=== PATIENT | male | born 1965 | race American Indian/Alaskan Native ===

== ENCOUNTER 2021-05-25 17:02 | Observation (INO) | payer SELFPAY, OTHER ==
[2021-05-25] MEDS ORDERED: ASPIRIN 325 MG TAB PO ONE (20:47)
--- NOTE | 2021-05-25 21:20 | XRay Report ---
CHEST 2 VIEWS INDICATION / CLINICAL INFORMATION: Chest Pain. COMPARISON: None available. FINDINGS: SUPPORT DEVICES: None. HEART / MEDIASTINUM: The heart size is normal with a left ventricular configuration. Pulmonary vascul ature is normal. There is mild aortic tortuosity without aneurysm. LUNGS / PLEURA: No significant pulmonary or pleural abnormality. No pneumothorax. ADDITIONAL FINDINGS: No significant additional findings. IMPRESSION: No acute findings. Signer Name: Dimas Musa MD Signed: 05/25/2021 9:16 PM Workstation Name: [id number]
[2021-05-25 21:43] LABS: Basophils % (Auto) 0.3 % (0.0-1.8); Eosinophils # (Auto) 0.1 K/mm3 (0.0-0.4); Eosinophils % (Auto) 1.3 % (0.0-4.3); Hematocrit 48.5 % (35.5-45.6); Hemoglobin 15.6 gm/dl (11.8-15.2); Lymphocytes # (Auto) 3.4 K/mm3 (1.2-5.4); Mean Corpuscular HGB Conc 32 % (32-34); Mean Corpuscular Volume 85 fl (84-94); Monocytes # (Auto) 0.4 K/mm3 (0.0-0.8); Monocytes % (Auto) 6.8 % (0.0-7.3); Platelet Count 248 K/mm3 (140-440); Red Cell Distribution Width 15.5 % (13.2-15.2)
[2021-05-25 22:06] LABS: Alanine Aminotransferase 21 units/L (7-56); Albumin 3.8 g/dL (3.9-5); BUN/Creatinine Ratio 12; Blood Urea Nitrogen 12 mg/dL (9-20); Calcium 8.8 mg/dL (8.4-10.2); Hemolysis Index 28
--- NOTE | 2021-05-25 23:02 | Emergency Department Report ---
HPI - General Chief Complaint: Chest Pain Time Seen by Provider: 05/25/21 22:41 - HPI HPI: MSE 3 The patient is a 56-year-old male present with chief complaint of shortness of breath and head cold. The patient states he has had a "head cold" for the past 3 days with symptoms that included cough productive of white/yellow sputum, rhinorrhea and shortness of breath. Patient states he has not been vaccinated against COVID. Patient complains of chest pain when he coughs and chest soreness. Patient states he went to an urgent care facility today and the continuous improvement intern sent him to the ED for further evaluation. They documented that a COVID test was sent with will not have results for 2 to 3 days. Patient denies known sick contacts ED Past Medical Hx - Past Medical History Previous Medical History?: Yes Hx Hypertension: Yes - Family History Family history: no significant - Social History Smoking Status: Never Smoker Substance Use Type: None (Denies illicit drug use), Alcohol (Occasional) - Medications Home Medications: Home Medications Medication Instructions Recorded Confirmed Last Taken Type Ciprofloxacin HCl [Ciprofloxacin 500 mg PO Q12H #20 tab 03/27/15 Unknown Rx TAB] HYDROcodone/APAP 5-325 [[place] 1 each PO Q6HR PRN #20 tablet 03/27/15 Unknown Rx 5/325] Ibuprofen [Motrin] 600 mg PO Q8H PRN #50 tablet 03/27/15 Unknown Rx Promethazine [Phenergan TAB] 25 mg PO Q6HR PRN #25 tab 03/27/15 Unknown Rx Tamsulosin [Flomax] 0.4 mg PO QDAY #20 cap 03/27/15 Unknown Rx lisinopriL [Zestril TAB] 40 mg PO QDAY #30 tablet 03/27/15 Unknown Rx ED Review of Systems ROS: Stated complaint: FLU LIKE SYMPTOMS Other details as noted in HPI Constitutional: no symptoms reported Eyes: denies: eye pain ENT: congestion Respiratory: cough, shortness of breath, SOB with exertion Cardiovascular: as per HPI Endocrine: no symptoms reported Gastrointestinal: denies: abdominal pain Genitourinary: denies: dysuria Musculoskeletal: myalgia Neurological: denies: headache Physical Exam - Physical Exam Vital Signs: Vital Signs 05/25/21 20:24 Temperature 98.7 F Pulse Rate 102 H Respiratory 18 Rate Blood Pressure 149/101 O2 Sat by Pulse 92 Oximetry Physical Exam: GENERAL: The patient is well-developed well-nourished male sitting in chair not appearing to be in acute distress HEENT: Normocephalic. Atraumatic. Extraocular motions are intact. Patient has moist mucous membranes. NECK: Supple. Trachea midline CHEST/LUNGS: Clear to auscultation. There is no respiratory distress noted. HEART/CARDIOVASCULAR: Regular. There is no tachycardia. There is no gallop rub or murmur. ABDOMEN: Abdomen is soft, nontender. Patient has normal bowel sounds. There is no abdominal distention. SKIN: There is no rash. There is no edema. There is no diaphoresis. NEURO: The patient is awake, alert, and oriented. The patient is cooperative. The patient has no focal neurologic deficits. The patient has normal speech. GCS 15 MUSCULOSKELETAL: There is no evidence of acute injury. ED Course Vital Signs 05/25/21 20:24 Temperature 98.7 F Pulse Rate 102 H Respiratory 18 Rate Blood Pressure 149/101 O2 Sat by Pulse 92 Oximetry ED Medical Decision Making - Lab Data Result diagrams: 05/25/21 21:09 05/25/21 21:09 Laboratory Tests 05/25/21 05/25/21 05/25/21 21:09 21:09 23:29 WBC 6.6 RBC 5.70 H Hgb 15.6 H Hct 48.5 H MCV 85 MCH 27 L MCHC 32 RDW 15.5 H Plt Count 248 Lymph % (Auto) 51.0 H [place] % (Auto) 6.8 Eos % (Auto) 1.3 Baso % (Auto) 0.3 Lymph # (Auto) 3.4 [place] # (Auto) 0.4 Eos # (Auto) 0.1 Baso # (Auto) 0.0 Seg Neutrophils % 40.6 Seg Neutrophils # 2.7 Sodium 137 Potassium 4.3 Chloride 99.0 Carbon Dioxide 24 Anion Gap 18 BUN 12 Creatinine 1.0 Estimated GFR > 60 BUN/Creatinine Ratio 12 Glucose 113 H Lactic Acid Calcium 8.8 Total Bilirubin 0.30 AST 31 ALT 21 Alkaline Phosphatase 63 Troponin T < 0.010 < 0.010 Total Protein 7.6 Albumin 3.8 L Albumin/Globulin Ratio 1.0 Lipase 18 05/25/21 23:29 WBC RBC Hgb Hct MCV MCH MCHC RDW Plt Count Lymph % (Auto) [place] % (Auto) Eos % (Auto) Baso % (Auto) Lymph # (Auto) [place] # (Auto) Eos # (Auto) Baso # (Auto) Seg Neutrophils % Seg Neutrophils # Sodium Potassium Chloride Carbon Dioxide Anion Gap BUN Creatinine Estimated GFR BUN/Creatinine Ratio Glucose Lactic Acid 1.20 Calcium Total Bilirubin AST ALT Alkaline Phosphatase Troponin T Total Protein Albumin Albumin/Globulin Ratio Lipase - EKG Data -: EKG Interpreted by Me EKG shows normal: sinus rhythm Rate: normal - EKG Data When compared to previous EKG there are: previous EKG unavailable Interpretation: other (No ischemic changes seen) - Radiology Data Radiology results: report reviewed (Chest x-ray), image reviewed (Chest x-ray) interpreted by me: Chest x-ray-no definite focal infiltrate, no pneumothorax [facility] [address] [place] [address] XRay Report Signed Patient: ROSINA MCDONOUGH MR#: [place] [id number] : 1965 Acct:[id number] Age/Sex: 56 / M ADM Date: 05/25/21 Loc: ED [facility] Dr: Ordering Physician: ABIEL HALL Date of Service: 05/25/21 Procedure(s): XR chest routine 2V Accession Number(s): [id number] cc: ABIEL HALL Fluoro Time In Minutes: CHEST 2 VIEWS INDICATION / CLINICAL INFORMATION: Chest Pain. COMPARISON: None available. FINDINGS: SUPPORT DEVICES: None. HEART / MEDIASTINUM: The heart size is normal with a left ventricular configuration. Pulmonary vasculature is normal. There is mild aortic tortuosity without aneurysm. LUNGS / PLEURA: No significant pulmonary or pleural abnormality. No pneumothorax. ADDITIONAL FINDINGS: No significant additional findings. IMPRESSION: No acute findings. Signer Name: Dimas Musa MD Signed: 05/25/2021 9:16 PM Workstation Name: [id number] Transcribed By: RT Dictated By: Dimas Musa MD Electronically Authenticated By: Dimas Musa MD Signed Date/Time: 05/25/212115 DD/ 14 TD/TT: - Differential Diagnosis COVID-pneumonia, influenza, bronchitis, Critical care attestation.: If time is entered above; I have spent that time in minutes in the direct care of this critically ill patient, excluding procedure time. ED Disposition Clinical Impression: Suspected COVID-19 virus infection, Hypoxia, Cough, Chest pain Disposition: ADMITTED INPATIENT Is pt being admited?: Yes Does the pt Need Aspirin: Yes Condition: Stable Instructions: Nonspecific Chest Pain, Adult Referrals: PRIMARY CARE,MD [Primary Care Provider] - 3-5 Days Time of Disposition: 00:39 (Hospitalist notified (Dr Brito)) Heart Score - HEART Score History: Slightly suspicious EKG: Normal Age: 45-65 Risk factors: 1-2 risk factors Troponin: < normal limit HEART Score: 2 - EKG Read Time Time EKG Completed: 21:43 EKG Read Time: 21:43
[2021-05-26] MEDS ORDERED: AZITHROMYCIN/NS 500 MG/250 ML 500 MG/250 ML BAG IV ONE
[2021-05-26] MEDS ORDERED: cefTRIAXone/NS 1 GM/50 ML 1 GM/50 ML BAG IV ONE
[2021-05-26] MEDS ORDERED: ONDANSETRON 4 MG/2 ML INJ IV PRN (01:44)
[2021-05-26] MEDS ORDERED: ACETAMINOPHEN 325 MG TAB PO PRN (01:44)
[2021-05-26] MEDS ORDERED: MORPHINE 4 MG/1 ML INJ IV PRN (01:44)
[2021-05-26] MEDS ORDERED: MAGNESIUM HYDROXIDE (MOM) ORAL LIQD UDC PO PRN (01:44)
[2021-05-26] MEDS ORDERED: MORPHINE 2 MG/1 ML INJ IV PRN (01:44)
[2021-05-26] MEDS ORDERED: SODIUM CHLORIDE 0.9% 1000 ML 1,000 ML IV SCH ×2 (01:45)
--- NOTE | 2021-05-26 01:57 | History and Physical Report ---
History of Present Illness Date of examination: 05/26/21 Date of admission: 05/26/21 00:05 Chief complaint: Shortness of breath Chest congestion History of present illness: 56-year-old male with no significant past medical history presenting to the emergency room today complaining of upper respiratory symptoms including cough, chest congestion and shortness of breath. Symptoms has been ongoing for about 3 days. Cough has been productive of some yellowish sputum. He feels some chest soreness after coughing. Patient has been having some low-grade fever. Patient denies any sick contacts and no recent travel. Denies any contact with anyone with COVID-19. He admits he has not been vaccinated against COVID-19. Patient had gone to an urgent care facility and was subsequently sent to the emergency room for further evaluation. A COVID test was said to have been done but results will not be ready until 48 to 72 hours. Upon arrival in the emergency room oxygen saturation was in the low 90s on room air. Work-up in the emergency room today, chest x-ray reveals no acute findings. Labs were unremarkable. Patient admitted with possible PUI. Past History Past Medical History: hypertension Past Surgical History: No surgical history Social history: alcohol abuse (Drinks alcohol occasionally). denies: smoking Family history: no significant family history Medications and Allergies Allergies Allergy/AdvReac Type Severity Reaction Status Date / Time No Known Allergies Allergy Unverified 11/25/13 09:57 Home Medications Medication Instructions Recorded Confirmed Last Taken Type Ciprofloxacin HCl [Ciprofloxacin 500 mg PO Q12H #20 tab 03/27/15 Unknown Rx TAB] HYDROcodone/APAP 5-325 [[place] 1 each PO Q6HR PRN #20 tablet 03/27/15 Unknown Rx 5/325] Ibuprofen [Motrin] 600 mg PO Q8H PRN #50 tablet 03/27/15 Unknown Rx Promethazine [Phenergan TAB] 25 mg PO Q6HR PRN #25 tab 03/27/15 Unknown Rx Tamsulosin [Flomax] 0.4 mg PO QDAY #20 cap 03/27/15 Unknown Rx lisinopriL [Zestril TAB] 40 mg PO QDAY #30 tablet 03/27/15 Unknown Rx Active Meds: Active Medications Acetaminophen (Acetaminophen 325 Mg Tab) 650 mg PO Q4H PRN PRN Reason: Pain MILD(1-3)/Fever >100.5/TOLLIVER Dexamethasone (Dexamethasone 20 Mg/5 Ml Vial) 10 mg IV ONCE ONE Stop: 05/26/21 01:49 Heparin Sodium (Porcine) (Heparin 5,000 Unit/1 Ml Vial) 5,000 unit SUB-Q Q8HR MYRANDA Sodium Chloride (Nacl 0.9% 1000 Ml) 1,000 mls @ 75 mls/hr IV DIRECT MYRANDA Ceftriaxone Sodium (Rocephin/Ns 2 Gm/100 Ml) 2 gm in 100 mls @ 200 mls/hr IV Q24H MYRANDA; Protocol Azithromycin (Zithromax/Ns) 500 mg in 250 mls @ 250 mls/hr IV Q24H MYRANDA; Protocol Sodium Chloride (Nacl 0.9% 1000 Ml) 1,000 mls @ 75 mls/hr IV DIRECT MYRANDA Magnesium Hydroxide (Magnesium Hydroxide (Mom) Oral Liqd Udc) 30 ml PO Q4H PRN PRN Reason: Constipation Morphine Sulfate (Morphine 2 Mg/1 Ml Inj) 2 mg IV Q4H PRN PRN Reason: Pain, Moderate (4-6) Morphine Sulfate (Morphine 4 Mg/1 Ml Inj) 4 mg IV Q4H PRN PRN Reason: Pain , Severe (7-10) Ondansetron HCl (Ondansetron 4 Mg/2 Ml Inj) 4 mg IV Q8H PRN PRN Reason: Nausea And Vomiting Sodium Chloride (Sodium Chloride 0.9% 10 Ml Flush Syringe) 10 ml IV BID MYRANDA Sodium Chloride (Sodium Chloride 0.9% 10 Ml Flush Syringe) 10 ml IV PRN PRN PRN Reason: LINE FLUSH Review of Systems Constitutional: fever, chills Ears, nose, mouth and throat: nasal congestion, no sore throat Cardiovascular: no chest pain, no palpitations Respiratory: cough, shortness of breath, no wheezing Gastrointestinal: no abdominal pain, no nausea, no vomiting, no diarrhea Genitourinary Male: no dysuria, no hematuria, no flank pain, no nocturia Musculoskeletal: no neck pain, no low back pain Integumentary: no rash, no pruritis Neurological: no headaches, no confusion Psychiatric: no anxiety, no depression Endocrine: no polyphagia, no polydipsia, no polyuria, no nocturia Exam - Constitutional Vitals: Temp Pulse Resp BP Pulse Ox 98.7 F 102 H 18 149/101 92 05/25/21 20:24 05/25/21 20:24 05/25/21 20:24 05/25/21 20:24 05/25/21 20:24 General appearance: Present: no acute distress, well-nourished, obese - EENT Eyes: Present: PERRL, EOM intact. Absent: scleral icterus ENT: hearing intact, clear oral mucosa, dentition normal - Neck Neck: Present: supple, normal ROM - Respiratory Respiratory effort: normal Respiratory: bilateral: CTA - Cardiovascular Rhythm: regular Heart Sounds: Present: S1 & S2. Absent: gallop, systolic murmur, diastolic murmur, rub, click - Extremities Extremities: no ischemia, pulses intact, pulses symmetrical, No edema, normal temperature, normal color, Full ROM Peripheral Pulses: within normal limits - Abdominal General gastrointestinal: Present: soft, non-tender, non-distended, normal bowel sounds. Absent: mass - Integumentary Integumentary: Present: clear, warm, dry, normal turgor. Absent: rash - Musculoskeletal Musculoskeletal: strength equal bilaterally - Psychiatric Psychiatric: appropriate mood/affect, intact judgment & insight, memory intact, cooperative - Neurologic Neurologic: CNII-XII intact, no focal deficits, moves all extremities HEART Score - HEART Score EKG: Normal Age: 45-65 Risk factors: 1-2 risk factors Troponin: Troponin T < 0.010 ng/mL (0.00-0.029) 05/25/21 23:29 Troponin: < normal limit Results - Labs CBC & Chem 7: 05/25/21 21:09 05/26/21 00:16 Labs: Abnormal lab results 05/25/21 05/25/21 05/26/21 Range/Units 21:09 21:09 00:16 RBC 5.70 H (3.65-5.03) M/mm3 Hgb 15.6 H (11.8-15.2) gm/dl Hct 48.5 H (35.5-45.6) % MCH 27 L (28-32) pg RDW 15.5 H (13.2-15.2) % Lymph % (Auto) 51.0 H (13.4-35.0) % D-Dimer 625.05 H (0-234) ng/mlDDU Glucose 113 H (75-100) mg/dL Albumin 3.8 L (3.9-5) g/dL Assessment and Plan - Patient Problems (1) Suspected COVID-19 virus infection Current Visit: Yes Status: Acute Plan to address problem: Will await COVID-[address] on isolation precautions. Patient placed on IV steroids. Consult placed to infectious disease for evaluation. (2) Hypoxia Current Visit: Yes Status: Acute Plan to address problem: Patient placed on oxygen and will keep O2 saturation greater or equal to 92%. (3) Hypertension Current Visit: Yes Status: Acute Plan to address problem: We will resume routine home medications and monitor vital signs closely. (4) DVT prophylaxis Current Visit: Yes Status: Acute Plan to address problem: Patient placed on subcutaneous heparin. (5) Full code status Current Visit: Yes Status: Acute Plan to address problem: Patient is full code.
[2021-05-26] MEDS ORDERED: dexAMETHasone 4 MG/ML VIAL IV ONE (02:48)
[2021-05-26 04:40] LABS: C-Reactive Protein 4.1 mg/dL (0.00-1.30)
[2021-05-26] MEDS ORDERED: HEPARIN 5,000 UNIT/1 ML VIAL SUB-Q SCH (06:00)
[2021-05-26] MEDS ORDERED: ALBUTEROL 2.5 MG/3 ML NEBU IH SCH (08:00)
[2021-05-26] MEDS ORDERED: TAMSULOSIN 0.4 MG CAP PO SCH (10:00)
[2021-05-26] MEDS ORDERED: DEXAMETHASONE 4 MG TAB PO SCH (10:00)
[2021-05-26] MEDS ORDERED: hydrALAZINE 20 MG/1 ML INJ IV PRN (10:00)
[2021-05-26] MEDS ORDERED: AZITHROMYCIN/NS 500 MG/250 ML 500 MG/250 ML BAG IV SCH (10:00)
[2021-05-26] MEDS ORDERED: LISINOPRIL 40 MG TAB PO SCH (10:00)
[2021-05-26] MEDS ORDERED: cefTRIAXone/NS 2 GM/100 ML 2 GM/100 ML BAG IV SCH (10:00)
[2021-05-26 11:14] VITALS: BP 115/64
--- NOTE | 2021-05-26 12:03 | Discharge Summary ---
Providers - Providers Date of Admission: 05/26/21 00:05 Attending physician: EAN VELÁZQUEZ MD 05/26/21 01:44 Consult to Physician [CONS] Routine Comment: Consulting Provider: OLE MAGANA Physician Instructions: Reason For Exam: PUI Primary care physician: SENIOR OFFICER Hospitalization Reason for admission: SHORTNESS OF BREATH Condition: Stable Hospital course: 56-year-old male with no significant past medical history presenting to the emergency room today complaining of upper respiratory symptoms including cough, chest congestion and shortness of breath. Symptoms has been ongoing for about 3 days. Cough has been productive of some yellowish sputum. He feels some chest soreness after coughing. Patient has been having some low-grade fever. Patient denies any sick contacts and no recent travel. Denies any contact with anyone with COVID-19. He admits he has not been vaccinated against COVID-19. Patient had gone to an urgent care facility and was subsequently sent to the emergency room for further evaluation. A COVID test was said to have been done but results will not be ready until 48 to 72 hours. Upon arrival in the emergency room oxygen saturation was in the low 90s on room air. Work-up in the emergency room today, chest x-ray reveals no acute findings. Labs were unremarkable. Patient admitted with possible PUI. I saw the patient, ordered COVID 19 AND DISCUSSED WITH NURSE THAT PATIENT NEEDS HOME O2 STUDY AND CTA CHEST AND IF BOTH ARE NEGATIVE PATIENT CAN BE DISCHARGED. I found out none was done and that patient "WALKED OUT" I was not notified of this until I called AM NOT SURE IF THAT MEANS HE ELOPED OR LEFT AMA. It appears patient left with the steroids I ordered. (1)COVID-19 virus infection Current Visit: Yes Status: Acute Plan to address problem: Will await COVID-[address] on isolation precautions. Patient placed on IV steroids. Consult placed to infectious disease for evaluation. (2) Hypoxia Current Visit: Yes Status: Acute Plan to address problem: Patient placed on oxygen and will keep O2 saturation greater or equal to 92%. (3) Hypertension Current Visit: Yes Status: Acute Plan to address problem: We will resume routine home medications and monitor vital signs closely. Disposition: 07 LEFT AWOL/ELOPED Final Discharge Diagnosis (Prints w/discharge instructions): Acute Respiratory failure WITH PNEUMONIA Time spent for discharge: 35 MINS Core Measure Documentation - Palliative Care Palliative Care/ Comfort Measures: Not Applicable - Core Measures Any of the following diagnoses?: none Exam - Physical Exam Narrative exam: General appearance: Present: no acute distress, well-nourished, obese - EENT Eyes: Present: PERRL, EOM intact. Absent: scleral icterus ENT: hearing intact, clear oral mucosa, dentition normal - Neck Neck: Present: supple, normal ROM - Respiratory Respiratory effort: normal Respiratory: bilateral: CTA - Cardiovascular Rhythm: regular Heart Sounds: Present: S1 & S2. Absent: gallop, systolic murmur, diastolic murmur, rub, click - Extremities Extremities: no ischemia, pulses intact, pulses symmetrical, No edema, normal temperature, normal color, Full ROM Peripheral Pulses: within normal limits - Abdominal General gastrointestinal: Present: soft, non-tender, non-distended, normal bowel sounds. Absent: mass - Integumentary Integumentary: Present: clear, warm, dry, normal turgor. Absent: rash - Musculoskeletal Musculoskeletal: strength equal bilaterally - Psychiatric Psychiatric: appropriate mood/affect, intact judgment & insight, memory intact, cooperative - Neurologic Neurologic: CNII-XII intact, no focal deficits, moves all extremities - Constitutional Vitals: Temp Pulse Resp BP Pulse Ox 97.2 F L 80 16 115/64 98 05/26/21 11:13 05/26/21 11:13 05/26/21 11:13 05/26/21 11:13 05/26/21 11:13 Plan Activity: advance as tolerated, fall precautions Diet: low fat Special Instructions: record daily weights, record daily BP diary Follow up with: JACK GARCIA MD [Staff Physician] - 7 Days FAZAL SEYMOUR MD [Staff Physician] - 7 Days Prescriptions: Amoxicillin/Potassium Clav [Augmentin 875-125 Tablet] 1 each PO BID #14 dexAMETHasone [Decadron] 8 mg PO DAILY #20 tablet lisinopriL [Zestril TAB] 40 mg PO QDAY #30 tablet
== END 2021-05-26 21:57 | disposition left against medical advice (07) ==
LOC: ED 17:02 → 3A 05-26 00:05
PROVIDERS: ADMIT Internal Medicine Geriatric Medicine; ATTEND Internal Medicine
DX: U07.1 COVID-19 (principal); I10 Essential (primary) hypertension; R09.02 Hypoxemia; R07.89 Other chest pain; R05.9 Cough, unspecified; Z79.899 Other long term (current) drug therapy; Z98.890 Other specified postprocedural states
CPT/HCPCS: 36415; 71046; 80053; 82140; 82728; 82947; 83615; 83690; 84484; 85025; 85379; 86140; 87040; 93005; 96365; 96368; 99285; G0378; J0456; J0696; U0003